=== PATIENT | female | born 1985 | race Caucasian/White ===

== ENCOUNTER 2016-05-11 11:22 | Day surgery (SDC) | payer BC ==
[~2016-05-11] VITALS: Ht 157.5 cm; Wt 97.0 kg
[2016-05-11] VITALS (25 sets, daily range): BP systolic 91–169; BP diastolic 50–97; PULSE 60–87; RESP 14–34; TEMP 97.3–98.5; O2SAT 90–100; Ht 157.5 cm; Wt 97.0 kg
[~2016-05-11 11:22] MED LIST: HYDR-4078 PO; IBUP-1724 PO; MIRT15TA6 PO; OXYC20TA PO
--- NOTE | 2016-05-11 11:30 | NUR ---
ADMIT PT ADMITTED TO ROOM 122 FROM CLINIC. PT VISIBLY IN PAIN AT THIS TIME - GUARDING ABDOMEN. WILL CONTINUE TO MONITOR.
[2016-05-11] MEDS ORDERED: ONDANSETRON 4mg/2ml INJECTION IV PRN ×2 (12:00→17:30)
[2016-05-11] MEDS: LR 1,000 ML IV SCH ×2 (12:06→18:40)
[2016-05-11] MEDS: HYDROMORPHONE 2mg/ml INJECTION IV PRN ×7 (12:12→20:50)
[2016-05-11] MEDS ORDERED: MORP15TA71 PO (12:18)
[2016-05-11] MEDS ORDERED: METF500T4 PO (12:18)
[2016-05-11 12:52] LABS: BASOPHILS % (AUTO) 0.2 % (0-2); EOSINOPHILS # (AUTO) 0.1 T/MM3 (0-0.5); EOSINOPHILS % (AUTO) 1.4 % (0-4); HCT - HEMATOCRIT 40.5 % (36-46); HGB - HEMOGLOBIN 13.2 GM/DL (12-16); IMMATURE GRANULOCYTE # (AUTO) 0.01 T/MM3 (0.00-0.03); IMMATURE GRANULOCYTE % (AUTO) 0.2 % (0.0-0.5); LYMPHOCYTES # (AUTO) 2.2 T/MM3 (1-4.8); LYMPHOCYTES % (AUTO) 33.7 % (23-45); MEAN CORPUSCULAR HGB 31.3 UUG (26-34); MEAN CORPUSCULAR HGB CONC(MCHC 32.6 GM/DL (31-37); MEAN PLATELET VOLUME 11.2 UM3 (9.4-12.4); MONOCYTES # (AUTO) 0.3 T/MM3 (0-0.8); MONOCYTES % (AUTO) 4.4 % (0-9.0); NEUTROPHILS % (AUTO) 60.1 % (33-66); RED BLOOD COUNT 4.22 M/MM3 (4.00-5.20); WBC - WHITE BLOOD COUNT 6.7 T/MM3 (4.5-11.0)
[2016-05-11 12:57] LABS: BLOOD, URINE 2+ (NEGATIVE); COLOR,URINE YELLOW (YELLOW); LEUKOCYTE ESTERASE ,URINE NEGATIVE (NEGATIVE); NITRITE,URINE NEGATIVE (NEGATIVE)
[2016-05-11 12:59] LABS: ALBUMIN 4.3 G/DL (3.5-5.0); ALBUMIN/GLOBULIN RATIO 1.3 RATIO (1.1-2.2); ALKALINE PHOSPHATASE 44 U/L (38-126); ALT (SGPT) 39 U/L (9-52); ANION GAP 11 MEQ/L (5-15); AST (SGOT) 24 U/L (14-36); BUN/CREATININE RATIO 27 RATIO (6-26); CALCIUM 9.4 MG/DL (8.4-10.2); CHLORIDE 108 MEQ/L (98-107); CO2 - CARBON DIOXIDE 27 MEQ/L (22-30); CREATININE 0.6 MG/DL (0.7-1.2); GLOMERULAR FILTRATION RATE 115; GLUCOSE 107 MG/DL (65-110); POTASSIUM 3.8 MEQ/L (3.6-5); SODIUM 146 MEQ/L (134-144); TOTAL PROTEIN 7.5 G/DL (6.3-8.2)
[2016-05-11 13:08] LABS: STARCH,URINE FEW; WBC,URINE 0-1 /HPF (0-5)
[2016-05-11 13:09] LABS: BACTERIA,URINE 1+ (NEGATIVE); MUCUS,URINE PRESENT
[2016-05-11] MEDS ORDERED: HYDROMORPHONE 2mg/ml INJECTION IV ONE (14:00)
--- NOTE | 2016-05-11 15:30 | DI ---
Indication: ITS.REASON: RLQ PELVIC PAIN PROCEDURE: US PELVIC NON OB W/TRANS VAG: Encounter: Initial Comparison: None FINDINGS: Transvaginal and transabdominal pelvic imaging was performed. The uterus measures 7.6 x 3.2 x 3.3 cm. The parenchyma is homogeneous without fibroids. The endometrial stripe measures 6 mm in thickness. There is no evidence of focal endometrial mass. Both ovaries are identified and normal in appearance. The ovaries are not enlarged and although there are peripheral follicles present. These are not increased in number to the degree typically seen with polycystic ovarian syndrome. The right ovary measures 3 x 2.2 x 1.8 cm. The left ovary measures 3.5 x 1.6 x 3.2 cm. There are no abnormal adnexal masses detected. Doppler flow to both ovaries. No free fluid. IMPRESSION: Unremarkable pelvic sonogram. .
--- NOTE | 2016-05-11 15:56 | NUR ---
TO OR PT TRANSPORTED TO THE OR AT THIS TIME VIA WHEELCHAIR AND ACCOMPANIED BY PRE OP STAFF AND . INFORMED CONSENT OBTAINED PRIOR TO TRANSFER. VITAL SIGNS STABLE ON ROOM AIR. WILL CONTINUE TO MONITOR.
[2016-05-11] MEDS ORDERED: BUPIVACAINE 0.25% (2.5mg/ml) INJ 30ml SDV ONE (16:00)
--- NOTE | 2016-05-11 16:15 | ANESPREOP ---
Anesthesia Record Date and Time DATE: 05/11/16 TIME: 16:13 Pre-Op Diagnosis pelvic pain Proposed Surgical Procedure Dx lap NPO since: 0800 Allergies: Coded Allergies: lorazepam (Verified Allergy, Unknown, 05/11/16) morphine (Verified Adverse Reaction, Intermediate, NAUSEA, 05/11/16) M.S. DOESN'T COVER PAIN WELL ON TOP OF CAUSING NAUSEA Ht/Wt/BMI Height: 5 ' 2.00 " Weight: 94.500 kg BMI: 38.1 kg/m2 Vital Signs Date Time Temp Pulse Resp B/P Pulse Ox O2 Delivery O2 Flow Rate FiO2 05/11/16 15:58 98.0 69 16 123/67 99 Room Air Medications Inpatient Medications Current Medications Medications (Trade) Dose Ordered Sig/David Start Time Stop Time Status Last Admin Dose Admin Lactated Ringer's (Lactated Ringers) 1,000 ml @ 150 mls/hr [id number] 05/11/16 12:00 05/11/16 12:06 150 MLS/HR Hydromorphone HCl (Dilaudid) 1 mg Q2H PRN 05/11/16 12:00 05/11/16 15:25 1 MG Ondansetron HCl (Zofran) 4 mg Q6H PRN 05/11/16 12:00 Hydrocodone/Acetaminophen ([place] 10-325 Tablet) 1 Each Tablet, 1 TAB PO Q4H PRN for PAIN, (Reported) Last Taken: on 05/11/16729 Ibuprofen (Ibuprofen) 200 Mg Tablet, 2 TAB PO Q4H PRN for PAIN, (Reported) Last Taken: on 05/11/16729 Metformin HCl (Metformin HCl) 500 Mg Tablet, 500 MG PO BIDWM, (Reported) Take one tablet, by mouth, 2 times a day with Meals. Last Taken: on 05/11/16729 Morphine Sulfate (Morphine Sulfate) 15 Mg Tablet , 15 MG PO BID, (Reported) Take 1 tablet, by mouth, 2 times a day. Last Taken: on 05/11/16729 Currently on Beta Parminder: No Medical/Surgical History Anesthesia PMH: Reports: *Diabetes (Type 2), Anesthesia Reactions (CRIES AFTER SURGERY; NO KNOWN AIRWAY ISSUES), Arthritis (LOWER BACK PAIN), Headaches ( MIGRAINES), Reflux (OCC-NO MEDS), Denies: *Angina, *Hypertension, *FL, Asthma, Blood Transfusion Reac, CHF, COPD, CVA/Stroke/TIA, Cancer, Clotting Problems, Deep Vein Thrombosis, Glaucoma, Hepatitis, Hiatal Hernia, Malignant Hyperthermia , Renal Disease, Rheumatic Fever, Seizures, Sleep Apnea Smoking Status: Current every day smoker # of Packs per Day: 0.5 # of Years: 15 Substance Use Type: does not use Alcohol Intake: none Past Surgical History Orthopedic Surgeries: Yes - 01-12 RT SHOULDER SCOPE W MANIP,RT SHOULDER SCOPE WITH DCR; RT CTR Abdominal Surgeries: Yes - LAP GI Genitourinary Surgeries: Yes - CYSTO'S Cardiac Surgeries: No Endocrine Surgeries: No Reproductive Surgeries: Yes - OVARIAN SURG X2, Laproscopy Neurological Surgeries: No Ear Surgeries: No Nose Surgeries: No Throat Surgeries: Yes - ADENOIDS REMOVED Other Surgeries: Yes - OVARIAN SURG X2 Anesthesia Adverse Reactions: FOUND none Family Hx of Anesthesia Advers: none Hx of Motion Sickness: No Pertinent Findings Laboratory Tests 05/11/16 12:29 EKG Rhythm: Sinus Rhythm Physical Exam Respiratory: Bilat breath sounds equal, Lungs clear Cardiovascular: FOUND Regular rate, rhythm, FOUND No murmur Airway Assessment Mallampati Score: I TMD: 3 Fingerbreadths Overall Assessment: No Airway Concerns ASA: 2 Plan Anesthesia Plan: GETA Discussion Discussed risks/options/alternatives of anesthesia and questions answered. Patient consents. Nursing pain assessment noted. Present: Spouse Attestation Statement Prior to the delivery of any anesthetic medication, I examined the patient, developed the plan, obtained the patient's consent and discussed the risk and benefits of the procedure with the patient/guardian. ADITYA GANDARA CRNA May 11, 2016 16:14
[2016-05-11] MEDS ORDERED: ROCURONIUM 50mg/5ml INJECTION IV ONE (16:19)
[2016-05-11] MEDS ORDERED: PROPOFOL 200mg 20 ML IV ONE (16:19)
[2016-05-11] MEDS ORDERED: FENTANYL 250mcg/5ml INJECTION ONE (16:25)
[2016-05-11] MEDS ORDERED: SUGAMMADEX 200 MG/2 ML INJECTION IV ONE (17:12)
[2016-05-11] MEDS ORDERED: KETOROLAC 30mg/ml INJECTION ONE (17:15)
--- NOTE | 2016-05-11 17:17 | GYNOPNOTE1 ---
MAGAZINE WRITER Postoperative Note Date of Operation: 05/11/16 Preoperative Diagnosis: Dysmenorrhea Postoperative Diagnosis: Same as Preoperative Procedure: Dx Laparoscopy, Lysis of Adhesions Procedure: bilateral ovarian cystotomies Surgeon: Candie García MD Anesthesia Provider: Dharmesh Womack CRNA Anesthesia Type: general Comments EBL minimal CANDIE GARCÍA MD May 11, 2016 17:17
[2016-05-11] MEDS ORDERED: ONDANSETRON 4mg/2ml INJECTION ONE (17:19)
[2016-05-11] MEDS ORDERED: MORPHINE SULFATE 4 MG SYRINGE IV PRN (17:30)
[2016-05-11] MEDS ORDERED: FENTANYL 100mcg/2ml INJECTION IV PRN (17:30)
[2016-05-11] MEDS ORDERED: METOCLOPRAMIDE 10mg/2ml INJECTION IV PRN (17:30)
--- NOTE | 2016-05-11 17:36 | ANESPO ---
Post-Op Note Date 05/11/16 Time: 17:33 Status Pt Participated in Evaluation: Pt participated in person Vital Signs Date Time Temp Pulse Resp B/P Pulse Ox O2 Delivery O2 Flow Rate FiO2 05/11/16 17:30 24 05/11/16 15:58 98.0 69 123/67 99 Room Air Respiratory Function: Airway patent, Regular respirations Cardiovascular Function: Regular pulse Telemetry Pattern: SR Mental Status: Alert/oriented Pain Level Intensity: 9 Hydration: IV infusing Complications during Recovery None apparent Follow-Up Instructions Instructions Per Surgeon Additional Information Patient is having pain in PACU, treating with Dilaudid. Also reports nausea, have given Zofran and Scopalamine. Patient is tearful and this is normal for her coming out of anesthesia she states. Patient takes MSO4 at home for chronic back pain. VSS. Plan to continue treating patient for pain before going to floor ADITYA GANDARA CRNA May 11, 2016 17:36
[2016-05-11] MEDS ORDERED: SCOPOLAMINE 1.5 MG PATCH TD ONE (17:45)
--- NOTE | 2016-05-11 18:12 | NUR ---
RETURN PT RETURNED TO ROOM 122 AT THIS TIME VIA CART. PT TRANSFERRED SELF FROM CART TO BED. VITAL SIGNS STABLE ON ROOM AIR UPON RETURN. PRESENT UPON RETURN. HOB ELEVATED. BED ALARM ON. WILL CONTINUE TO MONITOR.
[2016-05-11] MEDS: HYDROCODONE/APAP 5 mg/325 mg TABLET PO PRN (19:19)
[2016-05-12] MEDS: HYDROCODONE/APAP 5 mg/325 mg TABLET PO PRN ×3 (00:30→09:04)
[2016-05-12 00:33] VITALS: BP 107/56; PULSE 75; RESP 18; TEMP 98.2; O2SAT 96
[2016-05-12] MEDS: LR 1,000 ML IV SCH ×2 (01:20→08:00)
[2016-05-12] MEDS: HYDROMORPHONE 2mg/ml INJECTION IV PRN ×2 (01:25→05:48)
[2016-05-12 04:54] VITALS: BP 95/54; PULSE 72; RESP 16; TEMP 97.8; O2SAT 97
--- NOTE | 2016-05-12 05:27 | NUR ---
SHIFT SUMMARY PT VITAL SIGNS STABLE ON ROOM AIR, DENIES C/P,N/V AND SOA. PT HAS RATED ABDOMINAL PAIN AN 8/10 THROUGHOUT THE SHIFT, PRN PAIN MEDICATIONS GIVEN. AT 0400 VITALS PT STATED THAT THE PAIN WAS MORE OF A SORENESS AT THIS TIME, RATED PAIN A 7/10, PRN MEDICATION GIVEN AT THIS TIME. PT AMBULATES TO THE BATHROOM WITH A STANDBY ASSIST,ADEQUATE URINE OUTPUT. 2 LAPROSCOPIC SITES HAVE BANDAIDS IN PLACE WITH A CIRCLED AREA OF DRAINAGE. WILL CONTINUE TO MONITOR.
[2016-05-12 07:57] VITALS: PULSE 69; RESP 16
[2016-05-12 07:58] VITALS: BP 103/63; PULSE 69; RESP 16; TEMP 98.1; O2SAT 97
[2016-05-12] MEDS ORDERED: IBUPROFEN 200 MG TABLET PO PRN (09:00)
--- NOTE | 2016-05-12 10:46 | NUR ---
CM CM IN TO VISIT WITH PT. SHE IS ALERT AND ORIENTED. HER SPOUSE IS PRESENT. PT PLANS TO DC HOME. SHE DENIES DC NEEDS. SHE IS UP WITH SBA. SHE IS GIVEN CM CONTACT INFORMATION. Addendum: 05/12/16 at 1047 by JOSEY HARLEY RN Amended: Links added.
--- NOTE | 2016-05-12 11:28 | NUR ---
DISMISSAL PT HAS BEEN WALKING IN [place] WITHOUT INCREASED DISCOMFORT OR C/O DIZZINESS. PO PAIN MEDS CONTROLLING PAIN AT THIS TIME. PT DESCRIBES "NOT REALLY PAIN NOW, JUST SORENESS". WENT OVER WRITTEN DISMISSAL INSTRUCTIONS WITH PT AND PT'S INCLUDING DIET, ACTIVITY/RESTRICTIONS, MED CHANGES, F/U APPTS, WOUND CARE AND S/SX TO REPORT. BOTH VERBALIZED UNDERSTANDING. PT'S PERSONAL BELONGINGS GATHERED. SCRIPT CALLED TO RX OF CHOICE PREVIOUSLY. NO HOME MEDS TO RETURN. PT TAKEN OUT OF S.U. PER W/C BY INC STAFF TO ER ENTRANCE FOR TRANSPORT HOME BY .
--- NOTE | 2016-05-12 14:35 | OPNOTEF ---
DATE OF PROCEDURE 05/11/2016 PREOPERATIVE DIAGNOSIS Dysmenorrhea. POSTOPERATIVE DIAGNOSIS Dysmenorrhea, polycystic ovary syndrome. PROCEDURE Diagnostic laparoscopy, lysis of adhesions, bilateral ovarian cystotomies. SURGEON Candie Oconnor MD ANESTHESIA General endotracheal (Dharmesh Womack CRNA) EBL Minimal. OPERATIVE FINDINGS Filmy adhesions between the left ovary and the posterior uterus, glistening capsules bilateral ovaries, normal appendix, normal liver edge, otherwise normal pelvis. DESCRIPTION OF PROCEDURE Ms. Roper was brought to the OR and placed on the OR table in a comfortable supine position. She was given general anesthesia and intubated without difficulty. She was then placed in the standard lithotomy position and I performed a bimanual exam. The abdomen, perineum and vagina were prepped and draped in the usual sterile fashion. A Chapa catheter was placed to dependent drain. The cervix was then visualized with a freeway speculum. It was grasped with an Allis clamp. The [employer] uterine manipulator was inserted. We removed our other instruments and re-gloved. The infraumbilical region was then infiltrated with dilute Marcaine. A 5 mm incision was made with a sharp knife. Tenting up the abdomen, a Veress needle was inserted through this incision. The abdomen was then insufflated with CO2 until pressures of 12-15 mmHg were achieved. We removed the Veress needle and then, again tenting up the abdomen, inserted a 5 mm trocar through this incision. The sheath was left in place and 0-degree laparoscope placed through that. We explored the upper abdomen and appendix was easily seen. We then placed the patient in Trendelenburg and gently swept the bowel clear of the pelvis. The suprapubic region was transilluminated and infiltrated with dilute Marcaine. 5 mm incision was made. We then placed a 5 mm trocar through that incision under direct visualization. We further swept the bowel clear of the pelvis and elevated the uterus using the manipulator. Findings were as described above. We then used the cone tip and J-hook monopolar cautery to elevate the uterus and the ovaries and carefully drill holes through the capsules. I used sharp scissors without cautery to snip the adhesions free of left ovary to the posterior uterus, freeing that ovary up. We were very careful to stay away from bowel and from fallopian tubes throughout the process. We had clear fluid multiple times from the drilled holes on both ovaries. We then inspected carefully for hemostasis. We felt that there was nothing else we could achieve at this point, so we took the patient out of Trendelenburg and removed out lower instrument and its port. The site was hemostatic. We allowed the CO2 to escape completely, then removed the camera and its port. The incisions were reapproximated with subcuticular style 3-0 undyed Vicryl. The wounds were dressed with sterile dressings. Counts were correct postoperatively x 2. The urine remained clear and free flowing throughout the procedure. I then removed the uterine manipulator, inspected the cervix. It was hemostatic. We removed the Chapa catheter and returned Mrs. Roper to the supine position. She was brought up from under anesthesia, extubated and transferred to recovery in stable condition. JEREMY
--- NOTE | 2016-05-12 16:15 | NUR ---
DM screen Diet Order: Regular diet Lab: Glucose 81,107 Pt here less than 24 hours and dismissed without being seen by RD Glucose WNL No follow up planned
[2016-05-14] MEDS ORDERED: SCOPOLAMINE PATCH REMOVAL TD SCH (17:45)
--- OUTSIDE RECORDS SUMMARY | 2016-05-16 19:49 | XMS REPORT | Continuity of Care Document ---
Author Author [facility] Organization [facility] Address Unknown Phone Unavailable Support Name Relationship Address Phone SHAILESH GARCÍA MD Caregiver [address] [place] [address] [address] [place] [address] Unavailable SHAILESH GARCÍA MD Caregiver [address] [place] [address] [address] [place] [address] Unavailable XI REYES Caregiver [address] [place] [address] Unavailable DEBRA ROPER Next Of Kin [address] [place] [address] C Insurance Providers Guarantor Kira Roper Address [address] [id number] Email [email or web address] Policy Number [id number] Subscriber's Name Debra Roper Relationship 01 Spouse Group Number [id number] Effective Date 16 Advance Directives Directive Response Recorded Date/Time Ordered Resuscitation Status Full Code 05/11/16 11:51am Resuscitation Documents on File No 05/11/16 11:48am DPOA for Healthcare Only No 05/11/16 11:48am Living Will No 05/11/16 11:48am Problems Active Problems Medical Problem Onset Date Status Exacerbation of chronic back pain Unknown Acute Exacerbation of chronic back pain Unknown Acute Medications Current Home Medications Medication Dose Units Route Directions Days Qty Instructions Start Date Ibuprofen 200 Mg Tablet 2 Tab Oral Every 4 Hours as needed for Pain 01/01/15 Metformin Hcl 500 Mg Tablet 500 Mg Oral Twice Daily With Meals Take one tablet, by mouth, 2 times a day with Meals. 05/11/16 Morphine Sulfate 15 Mg Tablet 15 Mg Oral Twice A Day Take 1 tablet, by mouth, 2 times a day. 05/11/16 Past Home Medications Medication Directions Ordered Status Clomiphene Citrate (Clomid) 50 Mg Tablet, 50 Mg Oral 06/25/09 Discontinued Hydrocodone Bit/Acetaminophen (Lortab 5) 1 Tab Tablet, 1 Tab Oral As Needed 01/27/09 Discontinued Hydrocodone/Acetaminophen ([place] 10-325 Tablet) 1 Each Tablet, 1 Tab Oral Every 4 Hours as needed for Pain 01/01/15 Discontinued Metaxalone (Skelaxin) 800 Mg Tablet, 800 Mg Oral Twice A Day 01/27/09 Discontinued Metformin Hcl 500 Mg Tablet, 500 Mg Oral Twice A Day 08/22/08 Discontinued Progesterone , Oral 1ST 10 Days Of Cycle 06/25/09 Discontinued Ranitidine Hcl (Zantac) 300 Mg Tablet, 300 Mg Oral Bedtime 01/27/09 Discontinued Voltaren Gel , As Needed 01/27/09 Discontinued Social History Social History Problem Response Recorded Date/Time Onset Date Status Reason for Hospitalization BI-LAT PELVIC PAIN 05/12/2016 10:49am Not Applicable Not Applicable Hx Substance Use No 01/01/2015 2:20pm Not Applicable Not Applicable Hx Alcohol Use No 01/01/2015 2:20pm Not Applicable Not Applicable Has the pt used tobacco in the last 12 months Yes 05/11/2016 11:49am Not Applicable Not Applicable Query Response Start Date Stop Date Smoking Status Current every day smoker Hospital Discharge Instructions Instructions: Care Instructions: I was in the hospital because (patient own words): "PAIN IN MY ABDOMEN" Discharge Diet: as tolerated Discharge Activity: as tolerated Follow Up Appointments: FOLLOW UP WITH DR. GARCÍA IN HER OFFICE ON Monday05/27/2016 AT 2:10 PM OR SOONER IF NEEDED, CALL [phone]. Pending Lab / Results: No Pending Lab Expected Signs/Symptoms: as reviewed Notify Physician If: any concerns During Business Hours:: Please call the physician's office at [phone] After Business Hours:: Please call [phone] and have the crematorium operator page the physician. Pain Management/Treatment: morphine pills Wound/Incision Care: covered and dry for 24 hours, then showers only Condition at time of discharge: Good Plan of Care Discharge Date 05/12/16 11:28am Disposition 01 DISCHARGED HOME, SELF-CARE Instructions/Education Provided [facility] [place] Prescriptions See Medication Section Care Plan and Goals See Discharge Instructions Section Functional Status Query Response Date Recorded Mobility Status Ambulatory May 11, 2016 12:30pm Assistive Devices None May 11, 2016 12:30pm Activity Limitations Pain May 11, 2016 12:30pm Feeding Ability Independent May 11, 2016 12:30pm Toileting Ability Independent May 11, 2016 12:30pm Grooming Ability Independent May 11, 2016 12:30pm Dressing Ability Independent May 11, 2016 12:30pm Driving Ability Independent May 11, 2016 12:30pm Housework Ability Independent May 11, 2016 12:30pm Meal Preparation Ability Independent May 11, 2016 12:30pm Stair Climbing Ability Independent May 11, 2016 12:30pm Ability to complete ADL's impeded by No change May 11, 2016 12:30pm Cognitive/Perceptual Impairments None May 11, 2016 12:30pm Preferred Method of Learning Reading Listening May 11, 2016 12:30pm Allergies, Adverse Reactions, Alerts Allergen Type Severity Reaction Status Last Updated Lorazepam Allergy Unknown Active 05/11/16 Morphine Adverse Reaction Intermediate NAUSEA Active 05/11/16 Immunizations Query Response on File Recorded Date/Time Hx Influenza Vaccination N DECLINES 05/11/16 11:49am Hx Pneumococcal Vaccination No 05/11/16 11:49am Hx Influenza Vaccination N DECLINES 05/11/16 11:49am Vital Signs Acute Vital Signs Vital Response Date/Time Temperature (Fahrenheit) 98.1 deg F (96.8 - 99.1) 05/12/2016 7:58am Temperature (Calculated Celsius) 36.79157 degrees C (36.0 - 37.3) 05/12/2016 7:58am Temperature Source Oral 05/12/2016 7:58am Pulse Rate (adult) 69 bpm (60 - 100) 05/12/2016 7:58am Respiratory Rate 16 breaths/min (10 - 20) 05/12/2016 7:58am O2 Sat by Pulse Oximetry 97 % (90 - 100) 05/12/2016 7:58am Oxygen Delivery Method Room Air 05/12/2016 7:58am Oxygen Delivery Method Room Air 05/11/2016 8:08pm Blood Pressure 103/63 mm Hg 05/12/2016 7:58am Blood Pressure Source Automatic Cuff 05/12/2016 7:58am Height (Feet) 5 feet 05/11/2016 11:47am Height (Inches) 2.00 inches 05/11/2016 11:47am Weight (Kilograms) 97.000 kg 05/12/2016 7:58am Body Mass Index (BMI) 38.1 05/11/2016 11:47am Results Laboratory Results Test Name Result Units Flags Reference Collection Date/Time Result Date/ Time Comments White Blood Count 6.7 T/MM3 4.5-11.0 05/11/2016 12:29pm 05/11/2016 12: 52pm Red Blood Count 4.22 M/MM3 4.00-5.20 05/11/2016 12:29pm 05/11/2016 12: 52pm Hemoglobin 13.2 GM/DL 12-16 05/11/2016 12:29pm 05/11/2016 12:52pm Hematocrit 40.5 % 36-46 05/11/2016 12:2905/11/2016 12:52pm Mean Corpuscular Volume 96.0 UM3 80-100 05/11/2016 12:29pm 05/11/2016 12:52pm Mean Corpuscular Hemoglobin 31.3 UUG 26-34 05/11/2016 12:29pm 2016 12:52pm Mean Corpuscular Hemoglobin Concent 32.6 GM/DL 31-37 05/11/2016 12:29pm 05/11/2016 12:52pm RDW Standard Deviation 40.8 FL 36.9-50.2 05/11/2016 12:29pm 05/11/2016 12:52pm Platelet Count 299 T/MM3 130-400 05/11/2016 12:29pm 05/11/2016 12:52pm Mean Platelet Volume 11.2 UM3 9.4-12.4 05/11/2016 12:29pm 05/11/2016 12 :52pm Neutrophils (%) (Auto) 60.1 % 33-66 05/11/2016 12:29pm 05/11/2016 12: 52pm Lymphocytes (%) (Auto) 33.7 % 23-45 05/11/2016 12:29pm 05/11/2016 12: 52pm Monocytes (%) (Auto) 4.4 % 0-9.0 05/11/2016 12:29pm 05/11/2016 12:52pm Eosinophils (%) (Auto) 1.4 % 0-4 05/11/2016 12:29pm 05/11/2016 12:52pm Basophils (%) (Auto) 0.2 % 0-2 05/11/2016 12:29pm 05/11/2016 12:52pm Immature Granulocyte % (Auto) 0.2 % 0.0-0.5 05/11/2016 12:29pm 2016 12:52pm Absolute Neutrophils (auto) 4.0 T/MM3 1.8-7.7 05/11/2016 12:29pm 2016 12:52pm Absolute Lymphocytes (auto) 2.2 T/MM3 1-4.8 05/11/2016 12:29pm 2016 12:52pm Absolute Monocytes (auto) 0.3 T/MM3 0-0.8 05/11/2016 12:29pm 2016 12:52pm Absolute Eosinophils (auto) 0.1 T/MM3 0-0.5 05/11/2016 12:29pm 2016 12:52pm Absolute Basophils (auto) 0.0 T/MM3 0-0.2 05/11/2016 12:29pm 2016 12:52pm Absolute Immature Granulocyte (auto 0.01 T/MM3 0.00-0.03 05/11/2016 12: 29pm 05/11/2016 12:52pm Icterus Index < 2 0-7 05/11/2016 12:29pm 05/11/2016 12:59pm Chemistry Specimen Hemolysis < 15 0-25 05/11/2016 12:29pm 05/11/2016 12:59pm 0-25: Specimen Exhibited No Hemolysis. Turbidity < 20 0-20 05/11/2016 12:29pm 05/11/2016 12:59pm Sodium Level 146 MEQ/L H 134-144 05/11/2016 12:29pm 05/11/2016 12:59pm Potassium Level 3.8 MEQ/L 3.6-5 05/11/2016 12:29pm 05/11/2016 12:59pm Chloride Level 108 MEQ/L H 98-107 05/11/2016 12:29pm 05/11/2016 12:59pm Carbon Dioxide Level 27 MEQ/L 22-30 05/11/2016 12:29pm 05/11/2016 12: 59pm Anion Gap 11 MEQ/L 5-15 05/11/2016 12:29pm 05/11/2016 12:59pm Blood Urea Nitrogen 16.0 MG/DL 7-17 05/11/2016 12:29pm 05/11/2016 12: 59pm Creatinine 0.6 MG/DL L 0.7-1.2 05/11/2016 12:29pm 05/11/2016 12:59pm BUN/Creatinine Ratio 27 RATIO H 6-26 05/11/2016 12:29pm 05/11/2016 12: 59pm Glomerular Filtration Rate Calc 115 05/11/2016 12:29pm 05/11/2016 12:59pm Glucose Level 107 MG/DL 65-110 05/11/2016 12:29pm 05/11/2016 12:59pm Calculated Osmolality 282 MOSM/KG H 261-280 05/11/2016 12:29pm 2016 12:59pm Calcium Level 9.4 MG/DL 8.4-10.2 05/11/2016 12:29pm 05/11/2016 12:59pm Total Bilirubin 0.50 MG/DL 0.20-1.30 05/11/2016 12:29pm 05/11/2016 12: 59pm Alkaline Phosphatase 44 U/L 38-126 05/11/2016 12:29pm 05/11/2016 12: 59pm Total Protein 7.5 G/DL 6.3-8.2 05/11/2016 12:29pm 05/11/2016 12:59pm Albumin 4.3 G/DL 3.5-5.0 05/11/2016 12:29pm 05/11/2016 12:59pm Globulin 3.2 G/DL 2.4-3.6 05/11/2016 12:29pm 05/11/2016 12:59pm Albumin/Globulin Ratio 1.3 RATIO 1.1-2.2 05/11/2016 12:29pm 05/11/2016 12:59pm Aspartate Amino Transf (AST/SGOT) 24 U/L 14-36 05/11/2016 12:29pm 05/11 12:59pm Alanine Aminotransferase (ALT/SGPT) 39 U/L 9-52 05/11/2016 12:29pm 10/2016 12:59pm Urine Collection Type CLEANCATCH-MIDSTREAM 05/11/2016 12:08pm 05/11 12:57pm Urine Color YELLOW YELLOW 05/11/2016 12:08pm 05/11/2016 12:57pm Urine Turbidity CLEAR CLEAR 05/11/2016 12:08pm 05/11/2016 12:57pm Urine Specific Clare 1.020 1.015-1.025 05/11/2016 12:08pm 2016 12:57pm Urine pH 5.5 5.0-8.0 05/11/2016 12:08pm 05/11/2016 12:57pm Urine Leukocyte Esterase NEGATIVE NEGATIVE 05/11/2016 12:08pm 2016 12:57pm Urine Nitrite NEGATIVE NEGATIVE 05/11/2016 12:08pm 05/11/2016 12: 57pm Urine Protein NEGATIVE NEGATIVE 05/11/2016 12:08pm 05/11/2016 12: 57pm Urine Glucose (UA) NEGATIVE NEGATIVE 05/11/2016 12:08pm 05/11/2016 12 :57pm Urine Ketones NEGATIVE NEGATIVE 05/11/2016 12:08pm 05/11/2016 12: 57pm Urine Urobilinogen 1.0 EU/DL NORMAL 05/11/2016 12:08pm 05/11/2016 12: 57pm Urine Bilirubin NEGATIVE NEGATIVE 05/11/2016 12:08pm 05/11/2016 12: 57pm Urine Blood 2+ A NEGATIVE 05/11/2016 12:08pm 05/11/2016 12:57pm Urine WBC 0-1 /HPF 0-5 05/11/2016 12:08pm 05/11/2016 1:09pm Urine RBC 1-3 /HPF 0-3 05/11/2016 12:08pm 05/11/2016 1:09pm Urine Squamous Epithelial Cells 10-20 05/11/2016 12:08pm 2016 1:09pm Urine Bacteria 1+ H NEGATIVE 05/11/2016 12:08pm 05/11/2016 1:09pm Urine Mucus PRESENT 05/11/2016 12:08pm 05/11/2016 1:09pm Urine Starch FEW 05/11/2016 12:08pm 05/11/2016 1:09pm Urine Culture Indicated CULT NOT INDICATED 05/11/2016 12:08pm 05/11 1:09pm Glucometer 81 mg/dL 65-110 05/11/2016 6:00pm 05/11/2016 6:39pm Name: KIRA ROPER Unit #: [id number] : 1985 Sex: F Admit Date: 05/11/16 Loc / Svc: SRG Discharge Date: DIAGNOSTIC IMAGING REPORT Report #: [id number] [facility] [place], [place] Indication: ITS.REASON: RLQ PELVIC PAIN PROCEDURE: US PELVIC NON OB W/TRANS VAG: Encounter: Initial Comparison: None FINDINGS: Transvaginal and transabdominal pelvic imaging was performed. The uterus measures 7.6 x 3.2 x 3.3 cm. The parenchyma is homogeneous without fibroids. The endometrial stripe measures 6 mm in thickness. There is no evidence of focal endometrial mass. Both ovaries are identified and normal in appearance. The ovaries are not enlarged and although there are peripheral follicles present. These are not increased in number to the degree typically seen with polycystic ovarian syndrome. The right ovary measures 3 x 2.2 x 1.8 cm. The left ovary measures 3.5 x 1.6 x 3.2 cm. There are no abnormal adnexal masses detected. Doppler flow to both ovaries. No free fluid. IMPRESSION: Unremarkable pelvic sonogram. . Procedures Procedure Status Date Provider(s) Diagnostic laparoscopy Completed 05/11/16 SHAILESH GARCÍA MD Encounters Encounter Location Arrival/Admit Date Discharge/Depart Date Attending Provider Discharged Inpatient (obs) [facility] 05/11/16 11:22am 05/12/16 11:28am SHAILESH GARCÍA MD
--- OUTSIDE RECORDS SUMMARY | 2016-05-16 19:49 | XMS REPORT | Continuity of Care Document ---
Author Author [facility] Organization [facility] Address Unknown Phone Unavailable Support Name Relationship Address Phone SHAILESH GARCÍA MD Caregiver [address] [place] [address] [address] [place] [address] Unavailable SHAILESH GARCÍA MD Caregiver [address] [place] [address] [address] [place] [address] Unavailable XI REYES Caregiver [address] [place] [address] Unavailable DEBRA ROPER Next Of Kin [address] [place] [address] C Insurance Providers Guarantor Kira Roper Address [address] [place] [place] [phone] Email [email or web address] [facility] Policy Number [id number] Subscriber's Name Debra Roper Relationship 01 Spouse Group Number [id number] Effective Date 16 Advance Directives Directive Response [...] Tab Oral As Needed 01/27/09 Discontinued Hydrocodone/Acetaminophen ([place] 10-325 Tablet) 1 Each Tablet, 1 Tab [...] 2:10 PM OR SOONER IF NEEDED, CALL [phone]. Pending Lab / Results: No Pending Lab Expected Signs/Symptoms: as reviewed Notify Physician If: any concerns During Business Hours:: Please call the physician's office at [phone] After Business Hours:: Please call [phone] and have the graining operator page the physician. Pain Management/Treatment: morphine pills Wound/Incision Care: covered and dry for 24 hours, then showers only Condition at time of discharge: Good Plan of Care Discharge Date 05/12/16 11:28am Instructions/Education Provided [facility] [place] Prescriptions See Medication Section Functional Status Query Response Date Recorded [...] - 99.1) 05/12/2016 7:58am Temperature (Calculated Celsius) 36.27274 degrees C (36.0 - 37.3) 05/12/2016 7:58am [...] 05/11/2016 12:52pm Hematocrit 40.5 % 36-46 05/11/2016 12:29pm 05/11/2016 12:52pm Mean Corpuscular Volume 96.0 UM3 80-100 [...] CLEAR 05/11/2016 12:08pm 05/11/2016 12:57pm Urine Specific [place] 1.020 1.015-1.025 05/11/2016 12:08pm 2016 12:57pm Urine [...] 05/11/2016 6:39pm Name: KIRA ROPER Unit #: [id number] : [id number] Sex: F Admit Date: 05/11/16 Loc / Svc: SRG Discharge Date: DIAGNOSTIC IMAGING REPORT Report #: [id number] [facility] NIKKI Hdez Indication: ITS.REASON: RLQ PELVIC PAIN PROCEDURE: US [...] Location Arrival/Admit Date Discharge/Depart Date Attending Provider Departed [facility] 05/11/16 11:22am 05/12/16 11:28am SHAILESH GARCÍA MD
--- OUTSIDE RECORDS SUMMARY | 2016-05-16 19:49 | XMS REPORT | Continuity of Care Document ---
Author Author [facility] Organization [facility] Address Unknown Phone Unavailable Support Name Relationship Address Phone SHAILESH GARCÍA MD Caregiver [address] [place] [address] [address] [place] [address] Unavailable SHAILESH GARCÍA MD Caregiver [address] [place] [address] [address] [place] [address] Unavailable XI REYES Caregiver [address] [place] [address] Unavailable DEBRA ROPER Next Of Kin [address] [place] [address] C Insurance Providers Guarantor Kira Roper Address [address] [phone] Email [facility] Policy Number [id number] Subscriber's Name Debra Roper Relationship 01 Spouse Group Number [id number] Effective Date 16 Advance Directives Directive Response [...] Tab Oral As Needed 01/27/09 Discontinued Hydrocodone/Acetaminophen ([place] 10-325 Tablet) 1 Each Tablet, 1 Tab [...] 2:10 PM OR SOONER IF NEEDED, CALL [phone]. Pending Lab / Results: No Pending Lab Expected Signs/Symptoms: as reviewed Notify Physician If: any concerns During Business Hours:: Please call the physician's office at [phone] After Business Hours:: Please call [phone] and have the pick up operator page the physician. Pain Management/Treatment: morphine pills Wound/Incision Care: covered and dry for 24 hours, then showers only Condition at time of discharge: Good Plan of Care Discharge Date 05/12/16 11:28am Instructions/Education Provided [facility] [place] Dismissal Prescriptions See Medication Section Functional [...] - 99.1) 05/12/2016 7:58am Temperature (Calculated Celsius) 36.53355 degrees C (36.0 - 37.3) 05/12/2016 7:58am [...] CLEAR 05/11/2016 12:08pm 05/11/2016 12:57pm Urine Specific [place] 1.020 1.015-1.025 05/11/2016 12:08pm 2016 12:57pm Urine [...] 05/11/2016 6:39pm Name: KIRA ROPER Unit #: [id number] : 1985 Sex: F Admit Date: 05/11/16 Loc / Svc: SRG Discharge Date: DIAGNOSTIC IMAGING REPORT Report #: [id number] [facility] NIKKI Hdez Indication: ITS.REASON: RLQ PELVIC [...] Arrival/Admit Date Discharge/Depart Date Attending Provider Departed [facility] 05/11/16 11:22am 05/12/16 11:28am SHAILESH GARCÍA MD
== END 2016-05-12 11:28 | disposition home or self-care (01) ==
LOC: SRG 11:22 → SCU 11:22 → OBOBS 11:22 → UNDOADMOB 11:22 → UNDODISOB 05-12 11:28 → OBOBS 05-12 11:28 → SCU 05-12 11:28 → SRG 05-12 11:28 → EDSTATUS 05-12 12:35
PROVIDERS: ATTEND Obstetrics & Gynecology
DX: E28.2 Polycystic ovarian syndrome (principal); N94.4 Primary dysmenorrhea; N73.6 Female pelvic peritoneal adhesions (postinfective); F32.9 Major depressive disorder, single episode, unspecified; F17.200 Nicotine dependence, unspecified, uncomplicated; Z79.84 Long term (current) use of oral hypoglycemic drugs; Z79.1 Long term (current) use of non-steroidal anti-inflammatories (NSAID); Z79.899 Other long term (current) drug therapy
CPT/HCPCS: 36415; 58662; 76830; 76856; 80053; 81001; 82948; 85025; 96361; 96374; 96376; 99406; J1170; J1885; J2405; J2704; J3010; J7120; S0020